=== PATIENT | male | born 1980 | race Caucasian/White ===

== ENCOUNTER 2025-04-15 19:14 | Emergency (ER) | payer OTHER ==
[~2025-04-15] VITALS: Ht 177.8 cm; Wt 109.0 kg
[2025-04-15 19:21] VITALS: O2SAT 96
[2025-04-15] MEDS: IBUPROFEN 600MG TABLET PO ONE (23:30)
[2025-04-15] MEDS ORDERED: IBUP-1455 MT (23:42)
[2025-04-16] MEDS: TETANUS, DIPHTHERIA, PERTUSSIS VAC/PF 0.5ML (>10YR OLD) IM ONE (01:01)
[2025-04-16 01:09] VITALS: BP 139/104; PULSE 87; RESP 16; TEMP 36.7; O2SAT 97
== END 2025-04-16 01:10 | disposition home or self-care (01) ==
LOC: ER 19:14
DX: S20.219A Contusion of unspecified front wall of thorax, initial encounter (principal); S60.222A Contusion of left hand, initial encounter; I10 Essential (primary) hypertension; Z79.899 Other long term (current) drug therapy; V98.8XXA Other specified transport accidents, initial encounter; Y93.89 Activity, other specified; Y92.89 Other specified places as the place of occurrence of the external cause; Y99.8 Other external cause status
CPT/HCPCS: 71045; 73130; 90471; 90715; 93005; 99284